=== PATIENT | male | born 1970 | race Caucasian/White ===

== ENCOUNTER 2024-10-13 01:56 | Emergency (ER) | payer SELFPAY ==
[2024-10-13] VITALS (9 sets, daily range): BP systolic 84–130; BP diastolic 55–90; PULSE 62–94; RESP 16–26; TEMP 36.7; O2SAT 95–100; BMI 35.2
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
--- NOTE | 2024-10-13 02:06 | ECG_ITS ---
[facility] Test Date: 2024-10-13 Pat Name: Nate James Department: Room: Gender: Male Data Processing Clerk: : 1970 Requested By: Matthieu Harding Order Number: [id number] Dobbins MD: Pastor Arshad M.D. Measurements Intervals [place] Rate: 75 P: -7 MD: 167 QRS: 52 QRSD: 98 T: 14 QT: 404 QTc: 453 Interpretive Statements SINUS RHYTHM NONSPECIFIC T-WAVE ABNORMALITY No previous ECG available for comparison Electronically Signed On 10-13-2024 18:47:40 PHARMACY CUSTOMER CARE SPECIALIST by Pastor Arshad M.D. [email or web address]
[2024-10-13] MEDS: ondansetron 2 mg/ML SDV 2 mL 4 MG IVP (02:11)
[2024-10-13 02:12] LABS: Basophils # 0.2 10^3/uL (0.0-0.1); Basophils % 0.7 %; Eosinophils # 0.7 10^3/uL (0.0-0.8); Eosinophils % 3.2 %; Hematocrit 42.8 % (37-53); Lymphocytes # 3.1 10^3/uL (0.8-4.8); Lymphocytes % 14.4 %; Mean Corpuscular HGB Conc 32.9 g/dL (30-55); Mean Corpuscular Hemoglobin 34.1 pg (27-33); Mean Corpuscular Volume 103.4 fl (82-101); Mean Platelet Volume 9.9 fL (7.4-10.4); Monocytes # 1.1 10^3/uL (0.2-0.9); Monocytes % 5.2 %; Neutrophils # 16.31 10^3/uL (1.8-7.7); Neutrophils % 75.5 %; Nucleated Red Blood Cells % 0 %; Platelet Count 297 10^3/cmm (157-399); Red Blood Count 4.14 10^6/uL (3.85-5.65); Red Cell Distribution Width 12.3 % (12.1-15.1)
--- NOTE | 2024-10-13 02:22 | XRR_ITS ---
PROCEDURE INFORMATION: Exam: XR Chest Exam date and time: 10/13/2024 2:29 AM Age: 53 years old Clinical indication: Device placement; Patient HX: Check S/P chest tube placement TECHNIQUE: Imaging protocol: Radiologic exam of the chest. Views: 1 view. COMPARISON: CR XR chest 1V portable [id number] 10/13/2024 1:58 AM FINDINGS: Tubes, catheters and devices: There has been interval placement left-sided chest tube tip of the tube terminates in the left suprahilar region. No significant pneumothorax. Lungs: Patchy airspace disease left lung may represent pulmonary contusion. Pleural spaces: See Tubes, catheters and devices finding. Heart/Mediastinum: Unremarkable. No cardiomegaly. Bones/joints: Numerous displaced left rib fractures are again noted. Soft tissues: Extensive subcutaneous emphysema has progressed. Other findings: No pleural collection. XR/XR chest 1V portable [id number] IMPRESSION: 1. There has been interval placement left-sided chest tube tip of the tube. No significant pneumothorax. No pneumothorax. 2. Patchy airspace disease left lung may represent pulmonary contusions.
[2024-10-13] MEDS: ketamine 100 mg/mL Inj 5 mL 150 MG IVP (02:25)
[2024-10-13 02:27] LABS: INR 1.01 (0.8-1.2)
[2024-10-13 02:28] LABS: Partial Thromboplastin Time 26.3 SECONDS (23.9-36.7)
[2024-10-13 02:30] LABS: Alanine Aminotransferase 50 U/L (0-41); Albumin Level 4.1 g/dL (3.5-5.2); Alcohol Level 186 mg/dL (0-10); Alkaline Phosphatase 75 U/L (40-130); Anion Gap 16.4 (5-19); Aspartate Amino Transferase 59 U/L (0-40); Blood Urea Nitrogen 13 mg/dL (6-20); Calcium 8.8 mg/dL (8.5-10.5); Carbon Dioxide 25 mmol/L (22-29); Chloride 104 mmol/L (98-107); Creatinine Clr Calc Pharmacy 105.4121; Globulin 2.7 g/dL (1.3-4.6); Glomerular Filtration Rate 77.9 mL/min (90-130); Glucose 143 mg/dL (65-115); Osmolality Calculated 295 mOsm/kg (285-295); Potassium 4.4 mmol/L (3.5-5.1); Sodium 141 mmol/L (136-145); Total Bilirubin 0.3 mg/dL (0.15-1.2); Total Protein 6.8 g/dL (6.6-8.7)
--- NOTE | 2024-10-13 02:42 | XRR_ITS ---
PROCEDURE INFORMATION: Exam: XR Chest Exam date and time: 10/13/2024 2:48 AM Age: 53 years old Clinical indication: Device placement; Ett placement (vent status); Patient HX: Check S/P et placement; Additional info: Post intubation TECHNIQUE: Imaging protocol: Radiologic exam of the chest. Views: 1 view. COMPARISON: CR (CHEST, ) 10/13/2024 2:29 AM FINDINGS: Tubes, catheters and devices: Endotracheal tube tip terminates 3.2 cm above the jory. Left-sided chest tube unchanged in position. No significant pneumothorax. Lungs: Unremarkable. No consolidation. Pleural spaces: See Tubes, catheters and devices finding. Heart/Mediastinum: Unremarkable. No cardiomegaly. Bones/joints: Numerous left-sided rib fractures noted. Fracture mid shaft left clavicle. XR/XR chest 1V portable [id number] IMPRESSION: 1. Endotracheal tube tip terminates 3.2 cm above the jory. 2. Numerous left-sided rib fractures noted. Fracture mid shaft left clavicle. No significant pneumothorax.
[2024-10-13] MEDS: ceFAZolin 2,000 mg SDV 2000 MG IVP (02:52)
[2024-10-13] MEDS: ketamine 100 mg/mL Inj 5 mL IVP (02:54)
[2024-10-13] MEDS: succinylcholine 20 mg/mL SDV 10mL 150 MG IVP (02:54)
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
[2024-10-13 03:12] LABS: Bilirubin Urine Negative (Negative); Blood Urine Trace (Negative); Glucose Urine UA Negative (Normal); Ketones Urine Negative (Negative); Leukocyte Esterase Urine Negative (Negative); Nitrate Urine Negative (Negative); Protein Urine Negative (Negative); Specific Gravity, Urine 1.004 (1.005-1.030); Urine Appearance Clear (CLEAR); Urine Color Yellow (Yellow); Urobilinogen Urine 0.2 mg/dL (Negative)
[2024-10-13] MEDS: propofol 1,000 MG/100 ML INJ 3.33 MG IV (03:15)
[2024-10-13 03:17] LABS: Add Urine Microscopic? YES; Bacteria Urine None Seen /hpf; Hyaline Casts Urine 0.81 /lpf; RBC Urine 0-2 /hpf (0-2); Squamous Epithelial Cell Urine 0-5 /hpf (0-5); WBC Urine 0-5 /hpf (0-5)
[2024-10-13] MEDS: tetanus-dipt-pertussis 0.5 mL SDV IM (03:18)
[2024-10-13] MEDS: fentaNYL 1,000 MCG/100 ML BAG 2.5 MCG IV (03:18)
[2024-10-13 03:19] LABS: Amphetamines Screen Urine Negative (Negative); Barbiturates Screen Urine Negative (Negative); Benzodiazepines Screen Urine Negative (Negative); Cocaine Screen Urine Negative (Negative); Opiate Screen Urine Negative (Negative); PCP Screen Urine Negative (Negative); THC Screen Urine Negative (Negative)
[2024-10-13] MEDS: midazolam 1 mg/mL INJ 2 mL 4 MG IVP (03:25)
--- NOTE | 2024-10-13 03:53 | PC.NURSE ---
0225 - pt given 100mcg ketamine for chest tube insertion. chest tube inserted without difficulty by Dr. Galindo. verified by xray. 0245 - 16fr pavon catheter placed without incident draining clear yellow urine. Initial output of 1100cc. 0254 - 100mcg ketamine and 150 mg succynocholine given for sedation to intubate pt to protect airway. pt intubated by Dr. Galindo with #8 ET tube without difficulty measured 25cm at the teeth and verified by color change and xray.
== END 2024-10-13 04:43 | disposition short-term general hospital (02) ==
PROVIDERS: Emergency Provider Emergency Medicine
DX: S22.5XXA Flail chest, initial encounter for closed fracture (principal); T79.7XXA Traumatic subcutaneous emphysema, initial encounter; S42.022A Displaced fracture of shaft of left clavicle, initial encounter for closed fracture; S42.402A Unspecified fracture of lower end of left humerus, initial encounter for closed fracture; V89.2XXA Person injured in unspecified motor-vehicle accident, traffic, initial encounter
CPT/HCPCS: 31500; 71045; 72170; 73060; 80053; 80306; 80307; 81001; 85025; 85610; 85730; 90471; 90715; 93005; 96365; 96375; 99291; 99292; J0330; J0690; J2250; J2405; J2704; J3010; J3490

== ENCOUNTER → 2025-09-01 09:10 | Outpatient (BNVA) | payer MEDICAID, SELFPAY | PROVIDERS: PCP Nurse Practitioner Family; Visit Provider Specialist | DX: M16.11 Unilateral primary osteoarthritis, right hip (principal) | CPT/HCPCS: 73502 ==

== ENCOUNTER → 2025-09-12 12:06 | Outpatient (BNVA) | payer MEDICAID, SELFPAY | PROVIDERS: PCP Nurse Practitioner Family; Visit Provider Specialist | DX: Z53.9 Procedure and treatment not carried out, unspecified reason (principal) | CPT/HCPCS: 77002 ==